=== PATIENT | male | born 1955 | race Two or more races ===

== ENCOUNTER 2016-05-01 13:20 | Emergency (ER) | payer BC, OTHER ==
[2016-05-01 13:25] VITALS: BMI 34.3
--- NOTE | 2016-05-01 13:33 | PDOC ---
History of Present Illness - General History Source: Patient Exam Limitations: No Limitations - History of Present Illness Initial Comments: 05/01/16 13:58 The patient is a 60 year old female with a significant past medical history of HTN, OR (mild), who presents to the ED s/p fall. Patient states he was walking on the sidewalk, slipped on ice, and fell on his back. Patient complains of head pain. Patient denies back pain. Patient denies SOB, chest pain. Denies fever, chills, nausea, vomiting, diarrhea. Patient is currently on plavix. <Tod Montejo - Last Filed: 05/01/16 13:58> <Caroline Cerda - Last Filed: 05/01/16 14:53> - General Chief Complaint: Head/Neck problem Stated Complaint: FALL, HEADACHE, On coumadin Time Seen by Provider: 05/01/16 13:33 Past History <Tod Montejo - Last Filed: 05/01/16 13:58> - Past Medical History Cardiac Disorders: Yes (OR (mild)) HTN: Yes - Psycho/Social/Smoking Cessation Hx Suicidal Ideation: No Smoking History: Never smoked Information on smoking cessation initiated: No Hx Alcohol Use: No Drug/Substance Use Hx: No Substance Use Type: None <Caroline Cerda - Last Filed: 05/01/16 14:53> - Past Medical History Allergies/Adverse Reactions: Allergies Allergy/AdvReac Type Severity Reaction Status Date / Time No Known Allergies Allergy Verified 05/01/16 13:25 Home Medications: Ambulatory Orders Aspirin [ASA -] 81 mg PO DAILY 05/01/16 Atorvastatin Ca [Lipitor] 80 mg PO HS 05/01/16 Clopidogrel Bisulfate [Plavix -] 75 mg PO DAILY 05/01/16 Mesalamine [Lialda] 1.2 gm PO DAILY 05/01/16 Nebivolol [Bystolic -] 5 mg PO DAILY 05/01/16 Review of Systems - Review of Systems Able to Perform ROS?: Yes Comments:: 05/01/16 13:59 GENERAL/CONSTITUTIONAL: No fever or chills. No weakness. HEAD, EYES, EARS, NOSE AND THROAT: No change in vision. No ear pain or discharge. No sore throat. CARDIOVASCULAR: No chest pain or shortness of breath. RESPIRATORY: No cough, wheezing, or hemoptysis. GASTROINTESTINAL: No nausea, vomiting, diarrhea or constipation. GENITOURINARY: No dysuria, frequency, or change in urination. MUSCULOSKELETAL: No joint or muscle swelling or pain. No neck or back pain. SKIN: No rash NEUROLOGIC: + headache. No vertigo, loss of consciousness, or change in strength /sensation. ENDOCRINE: No increased thirst. No abnormal weight change. HEMATOLOGIC/LYMPHATIC: No anemia, easy bleeding, or history of blood clots. ALLERGIC/IMMUNOLOGIC: No hives or skin allergy. <Tod Montejo - Last Filed: 05/01/16 13:58> *Physical Exam - Vital Signs Last Vital Signs Temp Pulse Resp BP Pulse Ox 97.9 F 74 17 132/76 98 05/01/16 13:23 05/01/16 13:23 05/01/16 13:23 05/01/16 13:23 05/01/16 13:23 - Physical Exam Comments: 05/01/16 13:59 GENERAL: Awake, alert, and fully oriented, in no acute distress HEAD: No signs of trauma EYES: PERRLA, EOMI, sclera anicteric, conjunctiva clear ENT: Auricles normal inspection, hearing grossly normal, nares patent, oropharynx clear without exudates. Moist mucosa NECK: Normal ROM, supple, no lymphadenopathy, JVD, or masses LUNGS: Breath sounds equal, clear to auscultation bilaterally. No wheezes, and no crackles HEART: Regular rate and rhythm, normal S1 and S2, no murmurs, rubs or gallops ABDOMEN: Soft, nontender, normoactive bowel sounds. No guarding, no rebound. No masses EXTREMITIES: Normal range of motion, no edema. No clubbing or cyanosis. No cords, erythema, or tenderness NEUROLOGICAL: Cranial nerves II through XII grossly intact. Normal speech, normal gait SKIN: Warm, Dry, normal turgor, no rashes or lesions noted. <Tod Montejo - Last Filed: 05/01/16 13:58> - Vital Signs Last Vital Signs Temp Pulse Resp BP Pulse Ox 97.9 F 74 17 132/76 98 05/01/16 13:23 05/01/16 13:23 05/01/16 13:23 05/01/16 13:23 05/01/16 13:23 <Caroline Cerda - Last Filed: 05/01/16 14:53> Medical Decision Making - Medical Decision Making 05/01/16 14:52 CTH with no acute findings. Stable for DC home. <Caroline Cerda - Last Filed: 05/01/16 14:53> *DC/Admit/Observation/Transfer - Attestations Scribe Attestion: 05/01/16 13:59 Documentation prepared by Tod Montejo, acting as medical doctor md for Caroline Cerda MD, . <Tod Montejo - Last Filed: 05/01/16 13:58> - Discharge Dispostion Admit: No <Caroline Cerda - Last Filed: 05/01/16 14:53> Diagnosis at time of Disposition: Minor head injury without loss of consciousness Qualifiers: Encounter type: initial encounter Qualified Code(s): S09.90XA - Unspecified injury of head, initial encounter - Discharge Dispostion Disposition: HOME Condition at time of disposition: Stable - Patient Instructions Printed Discharge Instructions: DI for Closed Head Injury
[2016-05-01] MEDS ORDERED: ACETAMINOPHEN 325 MG TABLET (FP) PO ONE (13:57)
[2016-05-01] MEDS ORDERED: ACETAMINOPHEN 325 MG TABLET (FP) ONE (14:00)
[2016-05-01 15:11] VITALS: BP 120/72; PULSE 59; TEMP 98.4
== END 2016-05-01 15:10 | disposition home or self-care (01) ==
LOC: JER 13:20
DX: G44.319 Acute post-traumatic headache, not intractable (principal); W00.2XXA Other fall from one level to another due to ice and snow, initial encounter; Z91.81 History of falling; Y93.01 Activity, walking, marching and hiking; Y92.480 Sidewalk as the place of occurrence of the external cause; I25.2 Old myocardial infarction; I10 Essential (primary) hypertension
CPT/HCPCS: 70450-TC; 99283-25